=== PATIENT | male | born 1980 | race Two or more races ===

== ENCOUNTER 2017-06-27 23:26 | Emergency (ER) | payer BC ==
[~2017-06-27] VITALS: Ht 175.3 cm; Wt 83.9 kg
--- NOTE | 2017-06-27 23:50 | NUR ---
BIBSELF C/O "DIFFICULTY BREATHING X 1 MONTH, WORSE TODAY" PT AOX3 RR EVEN AND UNLABORED. NO SOB NOTED. SPEAKING IN FULL SENTENCES. NO NVD AT THIS TIME. PT WAITING FOR MD GRAHAM. PT NOT DIAPHORETIC.
--- NOTE | 2017-06-28 00:11 | NUR ---
RADIOLOGY AT BEDSIDE FOR XRAY
--- NOTE | 2017-06-28 01:15 | NUR ---
Patient discharged to home in stable condition. Written and verbal after care instructions given. Patient verbalizes understanding of instruction. ambulatory with a steady gait
[2017-06-28 01:31] VITALS: BP 118/68
== END 2017-06-28 01:15 | disposition home or self-care (01) ==
LOC: ER 23:26
DX: R06.02 Shortness of breath (principal); F17.200 Nicotine dependence, unspecified, uncomplicated
CPT/HCPCS: 71010; 99283; A4606; Z7610